=== PATIENT | female | born 1990 | race American Indian/Alaskan Native ===

== ENCOUNTER 2016-10-26 06:59 | Inpatient (IN) | payer OTHER ==
[2016-10-26] MEDS ORDERED: Nalbuphine 20 MG/1 ML Amp IVPUSH PRN (07:57)
[2016-10-26] MEDS ORDERED: Sodium Chloride 0.9% 10 ML Syringe FLUSH PRN ×2 (07:57→12:13)
[2016-10-26] MEDS ORDERED: Ondansetron 4 MG/2 ML SDV IVPUSH PRN ×2 (07:57→10:55)
[2016-10-26] MEDS ORDERED: Lactated Ringers 1,000 ML IV SCH (08:00)
[2016-10-26] MEDS ORDERED: Oxytocin/Lactated Ringers 10 UNIT/1,000 ML BAG IV SCH ×2 (08:00→08:15)
[2016-10-26] MEDS ORDERED: Misoprostol 25 MCG (1/4 of 100 MCG) Tab ONE (08:45)
--- NOTE | 2016-10-26 08:55 | PCM.LDHP ---
L&D History of Present Illness - General Date of Service: 10/26/16 Admit Problem/Dx: Patient Status Order with Admit Dx/Problem 10/26/16 07:57 Patient Status [ADT] Routine Admission Diagnosis/Problem Admission Diagnosis/Problem Normal Source of Information: Patient History Limitations: Reports: No Limitations - History of Present Illness Introduction:: 26 y/o JHONATAN 11/01/2016 at EGA [id number] presented to L&D for induction delayed from yesterday (pat of Dr Flores's-he is going out of town today). GBS negative. A positive antibody screen negative Pap smear negative immune rubella titer nonreactive serology negative HIV negative GC chlamydia probe hemoglobin hematocrit on 05/13/1711.7/38.8 platelets 103,000 on 08/24/16 hemoglobin 11.0 platelets 103,000 OB glucose screen 133 negative group B strep patient has history of ADHD patient taking vitamins and iron. Cytotec 25 g placed intravaginally at [address] Flores exam /soft/mid position Vertex Improves with: Reports: None Worsens with: Reports: None Associated Symptoms: Reports: N - Related Data Allergies/Adverse Reactions: Allergies Allergy/AdvReac Type Severity Reaction Status Date / Time No Known Allergies Allergy Verified 08/22/14 08:32 Home Medications: Home Meds Pnv with Ca,No.71/Iron/Fa [ Vitamin Tablet] 1 each PO DAILY 08/22/14 [ History] Acetaminophen [Tylenol] 650 mg PO Q4H PRN #0 tablet 08/23/14 [Rx] Docusate Sodium [Colace] 100 mg PO BID PRN #0 cap 08/23/14 [Rx] Ibuprofen [Motrin] 600 mg PO Q4H PRN #0 tablet 08/23/14 [Rx] Past Medical History - Past Health History Medical/Surgical History: Denies Medical/Surgical History Other HEENT History: wears contacts : 3 Para: 2 (2001) Other Dermatologic History: numerous tattoos Social & Family History - Family History Family Medical History: Noncontributory - Tobacco Use Smoking Status *Q: Former Smoker Years of Tobacco use: 2 Used Tobacco, but Quit: Yes Month Tobacco Last Used: 03-21-2016 Second Hand Smoke Exposure: No - Caffeine Use Caffeine Use: Reports: None - Alcohol Use Days Per Week of Alcohol Use: 0 - Recreational Drug Use Recreational Drug Use: No H&P Review of Systems - Review of Systems: Review Of Systems: See Below General: Reports: No Symptoms HEENT: Reports: No Symptoms Pulmonary: Reports: No Symptoms Cardiovascular: Reports: No Symptoms Gastrointestinal: Reports: No Symptoms Genitourinary: Reports: No Symptoms Musculoskeletal: Reports: No Symptoms Skin: Reports: No Symptoms Psychiatric: Reports: No Symptoms Neurological: Reports: No Symptoms Hematologic/Lymphatic: Reports: No Symptoms Immunologic: Reports: No Symptoms L&D Exam - Exam Exam: See Below - Vital Signs Vital Signs: Last Vital Signs Temp 98.0 F 10/26/16 08:10 Pulse 90 10/26/16 08:10 Resp 20 10/26/16 08:10 BP 118/81 10/26/16 08:10 Pulse Ox 98 10/26/16 08:10 Weight: 180 lb - OB Specific Fundal Height In cm: 39 Movement: Active Heart Tones: Present Heart Tones per Min: 140 Heart Rate (FHR) Variability: Moderate (6-25 bmp) Presentation: Vertex - Hernandez Score Hernandez Score Cervix Position: Posterior Hernandez Score Consistency: Soft Hernandez Score Effacement: 31-50% Hernandez Score Dilation: 1-2 cm Hernandez Score Infant's Station: -3 Hernandez Score Total: 4 - Exam General: Alert, Oriented HEENT: Conjunctiva Clear, Mucosa Moist & [place], PERRLA Neck: Supple, Trachea Midline Lungs: Clear to Auscultation, Normal Respiratory Effort Cardiovascular: Regular Rate, Regular Rhythm GI/Abdominal Exam: Normal Bowel Sounds, Soft, Non-Tender, No Organomegaly, No Distention, No Abnormal Bruit, No Mass, Pelvis Stable Genitourinary: Normal external exam, Normal bimanual exam, Normal speculum exam Back Exam: Normal Inspection, Full Range of Motion Extremities: Normal Inspection, Normal Range of Motion, Non-Tender, No Pedal Edema, Normal Capillary Refill Skin: Warm, Dry, Intact Neurological: Cranial Nerves Intact, Reflexes Equal Bilateral Psychiatric: Alert, Normal Affect, Normal Mood - Patient Data Lab Results Last 24 hrs: Laboratory Results - last 24 hr 10/26/16 Range/Units 08:15 WBC 8.55 (3.98-10.04) K/mm3 RBC 4.08 (3.98-5.22) M/mm3 Hgb 12.4 (11.2-15.7) gm/L Hct 37.7 (34.1-44.9) % MCV 92.4 (79.4-94.8) fl MCH 30.4 (25.6-32.2) pg MCHC 32.9 (32.2-35.5) g/dl RDW Std Deviation 53.3 H (36.4-46.3) fL Plt Count 261 (182-369) K/mm3 MPV 10.0 (9.4-12.3) fl Neut % (Auto) 76.9 H (34.0-71.1) % Lymph % (Auto) 14.4 L (19.3-51.7) % [place] % (Auto) 5.8 (4.7-12.5) % Eos % (Auto) 0.9 (0.7-5.8) Baso % (Auto) 0.1 (0.1-1.2) % Neut # (Auto) 6.57 H (1.56-6.13) K/mm3 Lymph # (Auto) 1.23 (1.18-3.74) K/mm3 [place] # (Auto) 0.50 H (0.24-0.36) K/mm3 Eos # (Auto) 0.08 (0.04-0.36) K/mm3 Baso # (Auto) 0.01 (0.01-0.08) K/mm3 Result Diagrams: 10/26/16 08:15 - Problem List (1) 39 weeks gestation of SNOMED Code(s): 02447720 ICD Code: Z3A.39 - 39 WEEKS GESTATION OF Status: Acute Current Visit: Yes Problem List Initiated/Reviewed/Updated: No Orders Last 24hrs: Active Orders 24 hr Category Date Time Status Patient Status [ADT] Routine ADT 10/26/16 07:57 Active Activity as Tolerated [RC] PFP Care 10/26/16 07:57 Active Communication Order [RC] ASDIRECTED Care 10/26/16 07:57 Active Heart Tones [RC] ASDIRECTED Care 10/26/16 07:57 Active Notify Provider [RC] PFP Care 10/26/16 07:57 Active Notify Provider [RC] PRN Care 10/26/16 07:57 Active Peripheral IV Care [RC] . DIRECTED Care 10/26/16 07:57 Active Vital Signs [RC] PER UNIT ROUTINE Care 10/26/16 07:57 Active Clear Liquid Diet [DIET] Diet 10/26/16 Breakfast Active CBC WITH AUTO DIFF [HEME] Stat Lab 10/26/16 08:15 Results Lactated Ringers [Ringers, Lactated] 1,000 ml Med 10/26/16 08:00 Active IV ASDIRECTED Nalbuphine [Nubain] Med 10/26/16 07:57 Active 10 mg IVPUSH Q2H PRN Ondansetron [Zofran] Med 10/26/16 07:57 Active 4 mg IVPUSH Q4H PRN Oxytocin/Lactated Ringers [Pitocin in LR 10 Units/1,000 Med 10/26/16 08:00 Active ML] 10 unit in 1,000 ml IV .CONTINUOUS Oxytocin/Lactated Ringers [Pitocin in LR 10 Units/1,000 Med 10/26/16 08:15 Active ML] 10 unit in 1,000 ml IV TITRATE Sodium Chloride 0.9% [Saline Flush] Med 10/26/16 07:57 Active 10 ml FLUSH ASDIRECTED PRN Electronic Heart Tones Ext w TOCO [WOMSER] Oth 10/26/16 07:57 Ordered Routine Electronic Heart Tones Internal [WOMSER] Per Unit Oth 10/26/16 07:57 Ordered Routine Peripheral IV Insertion Adult [OM.PC] Routine Oth 10/26/16 07:57 Ordered Resuscitation Status Routine Resus Stat 10/26/16 07:57 Ordered Medication Orders Lactated Ringer's (Ringers, Lactated) 1,000 mls @ 100 mls/hr IV ASDIRECTED CALDERON Oxytocin/Lactated Ringer's (Pitocin In Lr 10 Units/1,000 Ml) 10 unit in 1,000 mls @ 500 mls/hr IV .CONTINUOUS [place]DER[place] Oxytocin/Lactated Ringer's (Pitocin In Lr 10 Units/1,000 Ml) 10 unit in 1,000 mls @ 12 mls/hr IV TITRATE CALDERON; 2 MUNITS/MIN PRN Reason: Protocol Nalbuphine HCl (Nubain) 10 mg IVPUSH Q2H PRN PRN Reason: Pain (moderate 4-6) Ondansetron HCl (Zofran) 4 mg IVPUSH Q4H PRN PRN Reason: Nausea/Vomiting Sodium Chloride (Saline Flush) 10 ml FLUSH ASDIRECTED PRN PRN Reason: Keep Vein Open Assessment/Plan Comment:: Plan induction of labor and delivery
[2016-10-26] MEDS ORDERED: Terbutaline 1 MG/ML SDV ONE (09:40)
[2016-10-26] MEDS ORDERED: Citric Acid/Sodium Citrate Solution 30 ML Cup ONE (09:47)
[2016-10-26] MEDS ORDERED: Metoclopramide 10 MG/2 ML SDV ONE (09:47)
--- NOTE | 2016-10-26 09:51 | PCM.SN ---
- Free Text/Narrative Note: Significant prolonged decelerations, plan discussed with patient and will proceed with section.
[2016-10-26] MEDS ORDERED: Metoclopramide 10 MG/2 ML SDV IVPUSH ONE (09:52)
[2016-10-26] MEDS ORDERED: Citric Acid/Sodium Citrate Solution 30 ML Cup PO ONE (09:52)
[2016-10-26] MEDS ORDERED: Bupivacaine 0.5% 30 ML SDV ONE (09:54)
[2016-10-26] MEDS ORDERED: Morphine PF 10 MG/10 ML SDV ONE (10:19)
[2016-10-26] MEDS ORDERED: Lactated Ringers 1,000 ML ONE (10:23)
[2016-10-26] MEDS ORDERED: ceFAZolin 1 GM Vial ONE (10:24)
[2016-10-26] MEDS ORDERED: Ondansetron 4 MG/2 ML SDV ONE (10:35)
[2016-10-26] MEDS ORDERED: Ketorolac 30 MG/ML SDV ONE (10:35)
--- NOTE | 2016-10-26 10:53 | PCM.OPNOTE ---
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 and meconium- stained amnionic fluid Anesthesia Technique: Spinal Primary Surgeon: Nicko Max Secondary Surgeon: Brent Flores Anesthesia Provider: Jessica White ([place] COLLINS) Jigger Crown Pouncing Machine Operator: Kaelyn Ortiz ([id number]) Fluid Replacement, Intraop: 200 Output, Urine Amount: 160 EBL in mLs: 500 Drain/Tube Comments:: Mckee Complications: None Condition: Good Free Text/Narrative:: Patient was transported to the operating room #1 and placed under spinal anesthesia in the supine position with wedge under right hip right flank Mckee catheter to gravity drainage SCDs in place and functioning Ancef 2 g given intravenously prior surgery timeout performed confirming name date of and procedure as primary section. Adequate level of anesthesia was confirmed was brought to the operating room 20 mL of 0.5% Marcaine injected in the area of the planned incision and the Pfannenstiel incision made and care was sharp section to into the anterior fascia peritoneal cavity was entered without difficulty, bladder flap created pushed caudad low segment transverse performed delivering a female liveborn at [address] Hayes oriental rug stretcher in attendance 9/9 at one and 5 minutes weight 6 lbs. 3 oz. cord blood collected from the three-vessel cord placenta removed manually endometrial cavity inspected sponge needle pack asthma sharp count correct times one and the uterine incision closed running locking suture of #0 Monocryl second layer a horizontal modified Lembert suture of 0 Monocryl, and 2 additional [id number] sutures for hemostasis tubes and ovaries were normal clot screen from the gutters and cul-de-sac uterus replaced into the abdominal cavity reinspected and electrocautery used for hemostasis and one additional [id number] suture at the central portion and just to the right of the midline and a second suture for hemostasis sponge needle pack asthma sharp count correct 2 and abdominal cavity was closed with #1 PDS for the anterior fascia the septated tissue was irrigated and subcuticular closure with Yayo needle Monocryl 3-0 and derma Diaz Preneo applied clots were cleaned from the vagina and patient transported postanesthesia care unit in satisfactory condition no blood transfusions required not anticipated unless condition should change
[2016-10-26] MEDS ORDERED: ePHEDrine 50 MG/ML SDV IVPUSH PRN ×2 (10:55→12:13)
--- NOTE | 2016-10-26 11:10 | PCM.POSTAN ---
POST ANESTHESIA ASSESSMENT - MENTAL STATUS Mental Status: Alert, Oriented - VITAL SIGNS Pulse Rate: 90 SaO2: 99 Resp Rate: 15 Blood Pressure: 119/75 Temperature: 97.2 C - RESPIRATORY Respiratory Status: Respiratory Rate WNL, Airway Patent, O2 Saturation Stable - CARDIOVASCULAR CV Status: Pulse Rate WNL, Blood Pressure Stable - GASTROINTESTINAL GI Status: No Symptoms Free Text/Narrative:: pt did have emesis x2 in OR, no further nausea noted in PACU - PAIN Pain Score: 0 - POST OP HYDRATION Hydration Status: Adequate & Stable
[2016-10-26] MEDS ORDERED: fentaNYL 100 MCG/2 ML SDV IVPUSH PRN (11:30)
--- NOTE | 2016-10-26 12:05 | PCM48HPAN ---
Post Anesthesia Note - EVALUATION WITHIN 48HRS OF ANESTHETIC Vital Signs in Normal Range: Yes Patient Participated in Evaluation: Yes Respiratory Function Stable: Yes Airway Patent: Yes Cardiovascular Function Stable: Yes Hydration Status Stable: Yes Pain Control Satisfactory: Yes (denies pain, SAB receeding) Nausea and Vomiting Control Satisfactory: Yes (no further N/V, vomited x2 in OR) Mental Status Recovered: Yes
[2016-10-26] MEDS ORDERED: Lanolin 100% Cream 7 GM Tube TOP PRN (12:13)
[2016-10-26] MEDS ORDERED: diphenhydrAMINE 50 MG/ML SDV IVPUSH PRN (12:13)
[2016-10-26] MEDS ORDERED: Naloxone 0.4 MG/ML SDV IVPUSH PRN (12:13)
[2016-10-26] MEDS ORDERED: Dextrose 5%-Lactated Ringers 1,000 ML IV SCH (12:13)
[2016-10-26] MEDS ORDERED: Ondansetron 4 MG/2 ML SDV IV PRN (12:13)
[2016-10-26] MEDS ORDERED: Dextrose 5%-0.45% NaCl 1,000 ML IV SCH (12:13)
[2016-10-26] MEDS ORDERED: Acetaminophen 325 MG Tab PO PRN (12:13)
[2016-10-26] MEDS: Simethicone 80 MG Tab.Chew PO SCH ×3 (13:22→22:52)
[2016-10-26] MEDS: Acetaminophen/oxyCODONE 325-5 MG Tab PO PRN (14:28)
[2016-10-26] MEDS: Ketorolac 30 MG/ML SDV IVPUSH SCH (18:31)
[2016-10-27] MEDS: Ketorolac 30 MG/ML SDV IVPUSH SCH ×2 (00:25→05:38)
[2016-10-27] MEDS: Simethicone 80 MG Tab.Chew PO SCH ×5 (08:26→22:16)
[2016-10-27] MEDS: Docusate Sodium 100 MG Cap PO PRN (08:26)
[2016-10-27] MEDS: Acetaminophen/oxyCODONE 325-5 MG Tab PO PRN ×4 (08:27→23:04)
--- NOTE | 2016-10-27 08:43 | PCM.SN ---
- Free Text/Narrative Note: Postop day #1 Chest clear no abnormal breath sounds heart rate rhythm normal abdomen is soft uterus involuting normally incision appears normal no heavy vaginal bleeding no leg cramping probably home tomorrow.
--- NOTE | 2016-10-27 10:22 | PCM48HPAN ---
Post Anesthesia Note - EVALUATION WITHIN 48HRS OF ANESTHETIC Vital Signs in Normal Range: Yes Patient Participated in Evaluation: Yes Respiratory Function Stable: Yes Airway Patent: Yes Cardiovascular Function Stable: Yes Hydration Status Stable: Yes Pain Control Satisfactory: Yes Nausea and Vomiting Control Satisfactory: Yes Mental Status Recovered: Yes - COMMENTS/OBSERVATIONS Free Text/Narrative:: Patient denies any headaches, back pain, or residual numbness or tingling to LE.
[2016-10-27] MEDS: Ibuprofen 600 MG Tab PO PRN ×2 (11:38→18:21)
[2016-10-28] MEDS: Acetaminophen/oxyCODONE 325-5 MG Tab PO PRN ×2 (02:44→06:38)
[2016-10-28 04:08] VITALS: BP 128/91
[2016-10-28] MEDS: Ibuprofen 600 MG Tab PO PRN (04:53)
[2016-10-28] MEDS: Docusate Sodium 100 MG Cap PO PRN (07:28)
[2016-10-28] MEDS: Simethicone 80 MG Tab.Chew PO SCH (09:11)
--- NOTE | 2016-10-28 09:13 | PCM.DCSUM1 ---
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 and meconium- stained amnionic fluid Anesthesia Technique: Spinal Primary Surgeon: Nicko Max Secondary Surgeon: Brent Flores Anesthesia Provider: Jessica White ([place] COLLINS) Product Director: Kaelyn Ortiz (MS4) Fluid Replacement, Intraop: 200 Output, Urine Amount: 160 EBL in mLs: 500 Drain/Tube Comments:: Mckee Complications: None Condition: Good Free Text/Narrative:: Patient was transported to the operating room #1 and placed under spinal anesthesia in the supine position with wedge under right hip right flank Mckee catheter to gravity drainage SCDs in place and functioning Ancef 2 g given intravenously prior surgery timeout performed confirming name date of and procedure as primary section. Adequate level of anesthesia was confirmed was brought to the operating room 20 mL of 0.5% Marcaine injected in the area of the planned incision and the Pfannenstiel incision made and care was sharp section to into the anterior fascia peritoneal cavity was entered without difficulty, bladder flap created pushed caudad low segment transverse performed delivering a female liveborn at [address] Hayes postal service clerk in attendance 9/9 at one and 5 minutes weight 6 lbs. 3 oz. cord blood collected from the three-vessel cord placenta removed manually endometrial cavity inspected sponge needle pack asthma sharp count correct times one and the uterine incision closed running locking suture of #0 Monocryl second layer a horizontal modified Lembert suture of 0 Monocryl, and 2 additional [id number] sutures for hemostasis tubes and ovaries were normal clot screen from the gutters and cul-de-sac uterus replaced into the abdominal cavity reinspected and electrocautery used for hemostasis and one additional [id number] suture at the central portion and just to the right of the midline and a second suture for hemostasis sponge needle pack asthma sharp count correct 2 and abdominal cavity was closed with #1 PDS for the anterior fascia the septated tissue was irrigated and subcuticular closure with Yayo needle Monocryl 3-0 and derma Diaz Preneo applied clots were cleaned from the vagina and patient transported postanesthesia care unit in satisfactory condition no blood transfusions required not anticipated unless condition should change HPI Initial Comments: [facility] Post-Op/Procedure Note Patient Name: IGNACIO PARNELL Date of : 88 Patient Status: Inpatient Attending Provider: Nicko Max Date: 10/26/16 10:48 Initialization Date: 10/26/16 10:48 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 and meconium- stained amnionic fluid Anesthesia Technique: Spinal Primary Surgeon: Nicko Max Secondary Surgeon: Brent Flores Anesthesia Provider: Jessica White ([place] COLLINS) Product Director: Kaelyn Ortiz (MS4) Fluid Replacement, Intraop: 200 Output, Urine Amount: 160 EBL in mLs: 500 Drain/Tube Comments:: Mckee Complications: None Condition: Good Free Text/Narrative:: Patient was transported to the operating room #1 and placed under spinal anesthesia in the supine position with wedge under right hip right flank Mckee catheter to gravity drainage SCDs in place and functioning Ancef 2 g given intravenously prior surgery timeout performed confirming name date of and procedure as primary section. Adequate level of anesthesia was confirmed was brought to the operating room 20 mL of 0.5% Marcaine injected in the area of the planned incision and the Pfannenstiel incision made and care was sharp section to into the anterior fascia peritoneal cavity was entered without difficulty, bladder flap created pushed caudad low segment transverse performed delivering a female liveborn at [address] Hayes postal service clerk in attendance 9/9 at one and 5 minutes infant weight 6 lbs. 3 oz. cord blood collected from the three-vessel cord placenta removed manually endometrial cavity inspected sponge needle pack asthma sharp count correct times one and the uterine incision closed running locking suture of #0 Monocryl second layer a horizontal modified Lembert suture of 0 Monocryl, and 2 additional [id number] sutures for hemostasis tubes and ovaries were normal clot screen from the gutters and cul-de-sac uterus replaced into the abdominal cavity reinspected and electrocautery used for hemostasis and one additional [id number]-[id number] suture at the central portion and just to the right of the midline and a second suture for hemostasis sponge needle pack asthma sharp count correct 2 and abdominal cavity was closed with #1 PDS for the anterior fascia the septated tissue was irrigated and subcuticular closure with Yayo needle Monocryl 3-0 and derma Diaz Preneo applied clots were cleaned from the vagina and patient transported postanesthesia care unit in satisfactory condition no blood transfusions required not anticipated unless condition should change Brief History: [facility] . Post-Op/Procedure Note. [facility]: [id number] Date of : 88Patient Status: Inpatient. Attending Provider: Nicko Max Number: [id number]. Date: 10/26/16 10:48Initialization Date: 11/04 10:48. - General Post-Op/Procedure Note. Date of Surgery/Procedure: 11/04. Operative Procedure(s): Primary low segment transverse . Pre Op Diagnosis: 39 weeks gestation, prolonged decelerations ( intolerance to labor). 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 Anesthesia Technique: Spinal. Primary Surgeon : Nicko Max. Secondary Surgeon: Brent Flores. Anesthesia Provider: Jessica White ([place] COLLINS). Product Director: Kaelyn Ortiz (MS4). Fluid Replacement, Intraop: 200. Output, Urine Amount: 160. EBL in mLs: 500. Drain/ Tube Comments:: Mckee. Complications: None. Condition: Good. Free Text/ Narrative:: Patient was transported to the operating room #1 and placed under spinal anesthesia in the supine position with wedge under right hip right flank Mckee catheter to gravity drainage SCDs in place and functioning Ancef 2 g given intravenously prior surgery timeout performed confirming name date of and procedure as primary section. Adequate level of anesthesia was confirmed was brought to the operating room 20 mL of 0.5% Marcaine injected in the area of the planned incision and the Pfannenstiel incision made and care was sharp section to into the anterior fascia peritoneal cavity was entered without difficulty, bladder flap created pushed caudad low segment transverse performed delivering a female liveborn at [address] Hayes postal service clerk in attendance 9/9 at one and 5 minutes weight 6 lbs. 3 oz. cord blood collected from the three-vessel cord placenta removed manually endometrial cavity inspected sponge needle pack asthma sharp count correct times one and the uterine incision closed running locking suture of #0 Monocryl second layer a horizontal modified Lembert suture of 0 Monocryl, and 2 additional [id number] sutures for hemostasis tubes and ovaries were normal clot screen from the gutters and cul-de-sac uterus replaced into the abdominal cavity reinspected and electrocautery used for hemostasis and one additional gsdyhv-na-jynjt suture at the central portion and just to the right of the midline and a second suture for hemostasis sponge needle pack asthma sharp count correct 2 and abdominal cavity was closed with #1 PDS for the anterior fascia the septated tissue was irrigated and subcuticular closure with Yayo needle Monocryl 3-0 and derma Diaz Preneo applied clots were cleaned from the vagina and patient transported postanesthesia care unit in satisfactory condition no blood transfusions required not anticipated unless condition should change - Discharge Data Discharge Date: 10/28/16 Discharge Disposition: Home, Self-Care 01 Condition: Good - Discharge Diagnosis/Problem(s) (1) 39 weeks gestation of SNOMED Code(s): 64270365 ICD Code: Z3A.39 - 39 WEEKS GESTATION OF Status: Acute Current Visit: Yes - Patient Summary/Data Operative Procedure(s) Performed: Primary low segment transverse Complications: none Consults: none Hospital Course: unventful - Patient Instructions Diet: Regular Diet as Tolerated Driving: Do Not Drive (x2 weeks) Showering/Bathing: May Shower, No Tub Bathing/Swimming (x6 weeks) Notify Provider of: Fever, Increased Pain, Swelling and Redness, Drainage, Nausea and/or Vomiting - Discharge Plan Prescriptions/Med Rec: Acetaminophen/oxyCODONE [Percocet 325-5 MG] 1 tab PO Q6H PRN #25 tablet PRN Reason: Pain Home Medications: Home Meds Pnv with Ca,No.71/Iron/Fa [ Vitamin Tablet] 1 each PO DAILY 08/22/14 [ History] Acetaminophen [Tylenol] 650 mg PO Q4H PRN #0 tablet 08/23/14 [Rx] Docusate Sodium [Colace] 100 mg PO BID PRN #0 cap 08/23/14 [Rx] Ibuprofen [Motrin] 600 mg PO Q4H PRN #0 tablet 08/23/14 [Rx] Acetaminophen/oxyCODONE [Percocet 325-5 MG] 1 tab PO Q6H PRN #25 tablet [Rx] Patient Handouts: Delivery, Care After, Home Care Instructions for Mom Referrals: Nicko Max MD [Physician] - 11/24/16 10:45 am (4 week incision check in [address] Max[address] ) - Discharge Summary/Plan Comment DC Time >30 min.: No - Patient Data Vitals - Most Recent: Last Vital Signs Temp 97.7 F 10/28/16 02:46 Pulse 78 10/28/16 02:46 Resp 14 10/28/16 02:46 BP 128/91 H 10/28/16 02:46 Pulse Ox 96 10/28/16 02:46 Weight - Most Recent: 180 lb I&O - Last 24 hours: Intake & Output 10/27/16 10/28/16 10/28/16 22:59 06:59 14:59 Intake Total 660 Balance 660 Med Orders - Current: Current Medications Acetaminophen (Tylenol) 650 mg PO Q4H PRN PRN Reason: mild pain or fever Diphenhydramine HCl (Benadryl) 25 mg IVPUSH Q6H PRN PRN Reason: Itching or Nausea Last Admin: 10/26/16 13:20 Dose: 25 mg Docusate Sodium (Colace) 100 mg PO Q12H PRN PRN Reason: Constipation Last Admin: 10/28/16 07:28 Dose: 100 mg Emollient Ointment (Lansinoh Hpa) 0 gm TOP ASDIRECTED PRN PRN Reason: Sore Nipples Ephedrine Sulfate (Ephedrine Sulfate) 5 mg IVPUSH ASDIRECTED PRN PRN Reason: Hypotension Ephedrine Sulfate (Ephedrine Sulfate) 5 mg IVPUSH SEECOMMENT PRN PRN Reason: Other Dextrose/Sodium Chloride (Dextrose 5%-1/2 Ns) 1,000 mls @ 125 mls/hr IV ASDIRECTED [facility] Last Admin: 10/26/16 19:51 Dose: 125 mls/hr Ibuprofen (Motrin) 600 mg PO Q6H PRN PRN Reason: mild pain or fever Last Admin: 10/28/16 04:53 Dose: 600 mg Naloxone HCl (Narcan) 0.1 mg IVPUSH SEECOMMENT PRN PRN Reason: Respiratory Depression Ondansetron HCl (Zofran) 4 mg IVPUSH ONETIME PRN PRN Reason: Nausea/Vomiting Ondansetron HCl (Zofran) 4 mg IV Q8H PRN PRN Reason: Nausea/Vomiting Oxycodone/Acetaminophen (Percocet 325-5 Mg) 2 tab PO Q4H PRN PRN Reason: Pain (moderate 4-6) Last Admin: 10/28/16 06:38 Dose: 2 tab Simethicone (Simethicone) 80 mg PO [facility] Last Admin: 10/28/16 09:11 Dose: Not Given Sodium Chloride (Saline Flush) 10 ml FLUSH ASDIRECTED PRN PRN Reason: Keep Vein Open Discontinued Medications Bupivacaine HCl (Marcaine 0.5%) Confirm Administered Dose 30 ml .ROUTE .STK-MED ONE Stop: 10/26/16 09:55 Last Admin: 10/26/16 10:19 Dose: 20 ml Cefazolin Sodium (Ancef) Confirm Administered Dose 2 gm .ROUTE .STK-MED ONE Stop: 10/26/16 10:25 Citric Acid/Sodium Citrate (Bicitra Solution) Confirm Administered Dose 30 ml .ROUTE .STK-MED ONE Stop: 10/26/16 09:48 Last Admin: 10/26/16 09:55 Dose: 30 ml Citric Acid/Sodium Citrate (Bicitra Solution) 30 ml PO ONETIME ONE Stop: 10/26/16 09:53 Last Admin: 10/26/16 21:01 Dose: Not Given Fentanyl (Sublimaze) 50 mcg IVPUSH Q5M PRN PRN Reason: Pain Stop: 10/26/16 11:46 Lactated Ringer's (Ringers, Lactated) 1,000 mls @ 100 mls/hr IV ASDIRECTED [facility] Last Admin: 10/26/16 08:00 Dose: 100 mls/hr Oxytocin/Lactated Ringer's (Pitocin In Lr 10 Units/1,000 Ml) 10 unit in 1,000 mls @ 500 mls/hr IV .CONTINUOUS CALDERON Oxytocin/Lactated Ringer's (Pitocin In Lr 10 Units/1,000 Ml) 10 unit in 1,000 mls @ 12 mls/hr IV TITRATE CALDERON; 2 MUNITS/MIN PRN Reason: Protocol Lactated Ringer's (Ringers, Lactated) Confirm Administered Dose 1,000 mls @ as directed .ROUTE .STK-MED ONE Stop: 10/26/16 10:24 Dextrose/Lactated Ringer's (Dextrose 5%-Lactated Ringers) 1,000 mls @ 125 mls/ hr IV ASDIRECTED [facility] Stop: 10/26/16 20:12 Last Admin: 10/26/16 14:28 Dose: 125 mls/hr Ketorolac Tromethamine (Toradol) Confirm Administered Dose 30 mg .ROUTE .STK- MED ONE Stop: 10/26/16 10:36 Ketorolac Tromethamine (Toradol) 30 mg IVPUSH Q6H [facility] Stop: 10/27/16 05:01 Last Admin: 10/27/16 05:38 Dose: 30 mg Metoclopramide HCl (Reglan) Confirm Administered Dose 10 mg .ROUTE .STK-MED ONE Stop: 10/26/16 09:48 Last Admin: 10/26/16 09:54 Dose: 10 mg Metoclopramide HCl (Reglan) 10 mg IVPUSH ONETIME ONE Stop: 10/26/16 09:53 Last Admin: 10/26/16 21:01 Dose: Not Given Misoprostol (Cytotec) Confirm Administered Dose 25 mcg .ROUTE .STK-MED ONE Stop: 10/26/16 08:46 Last Admin: 10/26/16 08:54 Dose: 25 mcg Morphine Sulfate (Duramorph Pf) Confirm Administered Dose 10 mg .ROUTE .STK-MED ONE Stop: 10/26/16 10:20 Nalbuphine HCl (Nubain) 10 mg IVPUSH Q2H PRN PRN Reason: Pain (moderate 4-6) Ondansetron HCl (Zofran) 4 mg IVPUSH Q4H PRN PRN Reason: Nausea/Vomiting Ondansetron HCl (Zofran) Confirm Administered Dose 4 mg .ROUTE .STK-MED ONE Stop: 10/26/16 10:36 Sodium Chloride (Saline Flush) 10 ml FLUSH ASDIRECTED PRN PRN Reason: Keep Vein Open Terbutaline Sulfate (Brethine) Confirm Administered Dose 1 mg .ROUTE .STK-MED ONE Stop: 10/26/16 09:41 Last Admin: 10/26/16 09:44 Dose: 1 mg *Q Meaningful Use (DIS) - VTE *Q VTE Criteria *Q: - Stroke *Q Stroke Criteria *Q: - AMI *Q AMI Criteria *Q:
== END 2016-10-28 09:15 | disposition home or self-care (01) | DRG 766 ==
LOC: JD.OB 06:59 → OBSVTOIN 10:21
PROVIDERS: ADMIT Obstetrics & Gynecology; ATTEND Obstetrics & Gynecology
PROC: 10D00Z1 Extraction of Products of Conception, Low, Open Approach (ICD-10-PCS; principal; 2016-10-26)
PROC: 3E0P7GC Introduction of Other Therapeutic Substance into Female Reproductive, Via Natural or Artificial Opening (ICD-10-PCS; 2016-10-26)
DX: O76 Abnormality in fetal heart rate and rhythm complicating labor and delivery (principal); O77.0 Labor and delivery complicated by meconium in amniotic fluid; O69.2XX0 Labor and delivery complicated by other cord entanglement, with compression, not applicable or unspecified; Z3A.39 39 weeks gestation of pregnancy; Z37.0 Single live birth
CPT/HCPCS: 01961; 36415; 85025; 86850; 86900; 86901; 94762; A9270-GY; J0690; J1200; J1885; J2270; J2405; J2765; J3105; J7042; J7120